=== PATIENT | female | born 2000 | race Caucasian/White ===

== ENCOUNTER 2024-05-18 09:25 | Emergency (ER) | payer BC, SELFPAY ==
[2024-05-18 09:27] VITALS: BP 147/80
[2024-05-18 09:28] VITALS: BP 147/80
--- NOTE | 2024-05-18 10:16 | ED.GENMED ---
History of Present Illness
General
Chief Complaint: Abdominal Pain
Source: patient
Exam Limitations: none
Time Seen by Provider: 05/18/24 10:05
History of Present Illness
History of Present Illness:
23-year-old female presents complaining of several days worth of constant aching discomfort in the upper abdomen right in the center. Occasionally radiates to the back. She notes decreased appetite. She denies any significant pain with eating.
No shortness of breath chest pain or pain with breathing. She tried Tums and Pepcid without significant relief. 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 She denies any
difficulty moving her bowels or change in her bowel habits. She drinks a 12 ounce coffee daily and drinks alcohol socially but does not use NSAIDs regularly.
Phy Exam
Physical Exam
Physical Exam:
General: Well-appearing female no respiratory distress
HEENT: Normocephalic atraumatic
Heart: Regular rate and rhythm lungs: Clear no wheeze
Abdomen is soft tender to the epigastric region no guarding or rebound normal bowel sounds
Extremities: No cyanosis
Skin: Warm no rash
Course
Orders/Labs/Results
Orders:
Orders
05/18/24 10:13
Test Result ONCE
US Abdomen Complete/Upper Urgent
Comment:
Reason For Exam: abdominal pain
05/18/24 10:30
Complete Blood Count/With Diff Urgent
Comprehensive Metabolic Panel Urgent
HCG, Serum Qualitative Screen Urgent
Lipase Urgent
05/18/24 11:57
Mag Hydrox/Al Hydrox/Simeth [Maalox] 30 ml Phenobarb/Hyoscy/Atropine/Scop [] 10 ml Viscous Lidocaine 2% [Xylocaine Viscous Cup] 10 ml PO NOW
05/18/24 12:02
Mag Hydrox/Al Hydrox/Simeth [Maalox] 30 ml .ROUTE .[facility]
Phenobarb/Hyoscy/Atropine/Scop [] 10 ml .ROUTE .[facility]
05/18/24 12:03
Viscous Lidocaine 2% [Xylocaine Viscous Cup] 15 ml .ROUTE .[facility]
Abnormal Lab Results
05/18/24
10:30
WBC 4.0 L 10^3/uL
(4.8-10.8)
Chloride 109 H mmol/L
(98-107)
05/18/24 10:30
05/18/24 10:30
Vital Signs
Initial and Last Documented VS:
Initial Vital Signs
Temp Pulse Resp BP Pulse Ox
98.1 F 73 18 147/80 97
05/18/24 09:27 05/18/24 09:27 05/18/24 09:27 05/18/24 09:27 05/18/24 09:27
Last Documented Vital Signs
Temp Pulse Resp BP Pulse Ox
98.4 F 64 17 120/72 96
05/18/24 12:30 05/18/24 12:30 05/18/24 12:30 05/18/24 12:30 05/18/24 12:30
MDM/Problems Addressed
Differential Diagnosis Includes:
Epigastric abdominal pain. Consider gastritis versus reflux versus biliary colic. Abdomen exam benign otherwise. Will start with ultrasound and labs check lipase and test.
*Critical Care Note
Total Time (30-74mins, 75-104mins- exclusive of procedures): Not Applicable
Update Note
Update Note:
Patient resting comfortably upon reassessment. Ultrasound negative lipase normal labs reviewed with normal kidney and liver functions. Suspect underlying gastritis more advanced imaging not indicated at this point given relatively benign exam.
Will recommend PPIs [id number] and follow-up. Stable for discharge.
ED Attending Note
-
Portions of this chart may have been created with voice recognition software.� Occasional wrong word or��sound alike� substitutions may have occurred due to the inherent limitations of voice recognition software.
Discharge Plan
Departure
Patient Disposition: Home (Routine Discharge)
Date of Disposition: 05/18/24
Time of Disposition: 12:35
Patient with high blood pressure during this ER visit?: No
Discharge Problem:
Abdominal pain
Instructions: Abdominal Pain
Prescriptions:
New
omeprazole 40 mg capsule,delayed release(DR/EC)
40 mg PO DAILY Qty: 14 0RF
Referrals:
Ollie Machado, DO [Family Provider] -
Activity Restrictions/Additional Instructions:
Use Prilosec as directed only. Continue with bland diet to return if worse otherwise follow-up with your doctor
Interventions
Interventions:
*Risk Screen - Suicide Last Done: 05/18/24 09:28
*General Assessment Last Done: 05/18/24 12:30
*Neglect/Abuse Screening Last Done: 05/18/24 09:28
*ED COVID-19 Vaccine History Last Done: 05/18/24 12:30
GU-[id number]-Sylmrwazln Assessment Last Done: 05/18/24 10:39
Discharge Date and Time
Print Language: MOHAWK
[2024-05-18 10:37] VITALS: BMI 36.1
[2024-05-18 10:53] LABS: % Basophils 0.5 % (0-2); % Eosinophils 1.2 % (0-6); % Lymphocytes 35.9 % (20.5-51.1); % Monocytes 9.2 % (1.7-9.3); % Neutrophils 53.2 % (42.2-75.2); Absolute Eosinophils 0.1 10^3/uL (0-0.7); Absolute Lymphocytes 1.5 10^3/uL (1.2-3.4); Absolute Monocytes 0.4 10^3/uL (0.1-0.6); Absolute Neutrophils 2.2 10^3/uL (1.4-6.5); Hematocrit 38.7 % (37.0-47.0); Hemoglobin 13.4 g/dL (12.0-16.0); Mean Corp Hgb Conc. 34.6 g/dL (33.0-37.0); Mean Corpuscular Hgb 30.4 pg (27.0-31.0); Mean Corpuscular Volume 87.8 fL (81.0-99.0); Mean Platelet Volume 8.6 fL (7.4-10.4); Nucleated Red Blood Cells % 0 %; Platelet Count 268 10^3/uL (130-400); Red Blood Cell Count 4.41 10^6/uL (4.20-5.40); Red Cell Dist. Width 13.2 % (11.5-14.5)
[2024-05-18 10:59] LABS: ALT (SGPT) 27 U/L (0-35); AST (SGOT) 26 U/L (14-36); Albumin 4.1 g/dl (3.5-5.0); Alkaline Phosphatase 92 U/L (38-126); Blood Urea Nitrogen 12 mg/dl (7-17); Carbon Dioxide 24 mmol/L (22-30); Chloride 109 mmol/L (98-107); Estimated Creatinine Clearance > 125 ml/min; Glucose 85 mg/dl (70-99); Lipase 77 U/L (23-300); Potassium 4.1 mmol/L (3.5-5.1); Sodium 142 mmol/L (135-145); Total Bilirubin 1.1 mg/dl (0.2-1.3); Total Protein 6.9 g/dl (6.3-8.2); eGFR > 60.00
[2024-05-18 11:00] LABS: HCG, Serum Qualitative Screen Negative
[2024-05-18] MEDS: MAALOX 50 PO (12:05)
[2024-05-18 12:30] VITALS: BP 120/72
[2024-05-18 12:52] VITALS: BP 117/71
== END 2024-05-18 12:54 | disposition home or self-care (01) ==
LOC: EMR 09:25
PROVIDERS: Physician Assistant; EMERGENCY PHYSICIAN Emergency Medicine; FAMILY PHYSICIAN Internal Medicine
DX: R10.10 Upper abdominal pain, unspecified (principal)
CPT/HCPCS: 99284; 76700; 80053; 83690; 84703; 85025